=== PATIENT | male | born 1985 | race Caucasian/White ===

== ENCOUNTER 2018-11-06 20:23 | Emergency (ER) | payer OTHER ==
[~2018-11-06] VITALS: Ht 177.8 cm; Wt 83.9 kg
[2018-11-06 20:30] VITALS: BP 168/104
[2018-11-06] MEDS ORDERED: DIPHTH,PERTUSS(ACELL),TET TOX 0.5 ML DISP.SYRIN. VAX IM ONE (21:30)
[2018-11-06] MEDS ORDERED: LIDOCAINE 2% 20 ML VIAL. IJ ONE (21:30)
[2018-11-06] MEDS ORDERED: KETOROLAC 60 MG/2 ML VIAL. IM ONE (22:00)
[2018-11-06] MEDS ORDERED: AMOX1TAB61 PO (23:01)
[2018-11-06] MEDS ORDERED: HYDR-3135 PO (23:01)
--- NOTE | 2018-11-06 23:01 | PHYS DOC ---
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 There is a 1.5 cm laceration to the palm of the hand as well as a bite to the tip of the third digit with a broken fingernail. The patient states that this was his personal dog and it is vaccinated. The patient is not up-to-date on his tetanus status. (MILY MIJARES APRN) Review of Systems Review of Systems Constitutional: Denies fever or chills [] Respiratory: Denies cough or shortness of breath [] Cardiovascular: No additional information not addressed in HPI [] GI: Denies abdominal pain, nausea, vomiting, bloody stools or diarrhea [] : Denies dysuria or hematuria [] Musculoskeletal: Denies back pain or joint pain [] Integument: See history of present illness Neurologic: Denies headache, focal weakness or sensory changes [] Endocrine: Denies polyuria or polydipsia [] All other systems were reviewed and found to be within normal limits, except as documented in this note. (MILY MIJARES APRN) Current Medications Current Medications Current Medications Medications (Trade) Dose Ordered Sig/Josefa Start Time Stop Time Status Last Admin Dose Admin Diphtheria/ Tetanus/Acell Pertussis (Boostrix) 0.5 ml ONCE ONCE 11/06/18 21:30 11/06/18 21:31 DC 11/06/18 21:39 0.5 ML Ketorolac Tromethamine (Toradol Im) 60 mg 1X ONCE 11/06/18 22:00 11/06/18 22:01 DC 11/06/18 22:09 60 MG Lidocaine HCl 20 ml 1X ONCE 11/06/18 21:30 11/06/18 21:31 DC 11/06/18 21:11 20 ML (DIANDRA LONG MD) Allergies Allergies Allergies Coded Allergies Type Severity Reaction Last Updated Verified No Known Medication Allergies Allergy Unknown 11/06/18 Yes diphenhydramine Adverse Reaction Mild anxiety 11/06/18 Yes (DIANDRA LONG MD) Physical Exam Physical Exam Constitutional: Well developed, well nourished, no acute distress, non-toxic appearance. [] Cardiovascular:Heart rate regular rhythm, no murmur [] Lungs & Thorax: Bilateral breath sounds clear to auscultation [] Abdomen: Bowel sounds normal, soft, no tenderness, no masses, no pulsatile masses. [] Skin: 0.5 cm laceration to the palm of the right hand, there are 2 puncture wounds to the tip of the right finger that have broken the fingernail. Back: No tenderness, no CVA tenderness. [] Extremities: No tenderness, no cyanosis, no clubbing, ROM intact, no edema. [] Neurologic: Alert and oriented X 3, normal motor function, normal sensory function, no focal deficits noted. [] Psychologic: Affect normal, judgement normal, mood normal. [] (MILY MIJARES APRN) Current Patient Data Vital Signs Vital Signs Date Time Temp Pulse Resp B/P (MAP) Pulse Ox O2 Delivery O2 Flow Rate FiO2 11/06/18 20:30 98.5 122 16 168/104 (125) 96 Room Air 98.5 (DIANDRA LONG MD) EKG EKG [] (MILY MIJARES APRN) Radiology/Procedures Radiology/Procedures []Laceration Repair by me: Anesthesia: 1% lidocaine locally Location: Right palmar surface Tendon/Joint/Nerves: No injury Foreign body: None detected after copious irrigation and exploration Technique: 4 Simple Interrupted Sutures Complexity: No subcutaneous sutures/mucosal repair/edge excision Post Closure Length: 1.5 cm Patient's bleeding was easily controlled in the department and there is no indication of anemia. No evidence of compartment syndrome, neurologic injury, vascular injury, open joint, tendon laceration, or foreign body. Patient is appropriate for outpatient follow up. 48 hour wound check. Scar minimization instructions given. (MILY MIJARES APRN) Course & Med Decision Making Course & Med Decision Making Pertinent Labs and Imaging studies reviewed. (See chart for details) []The patient received a Boostrix except in the emergency department. His wounds were thoroughly cleaned and he was placed on antibiotic therapy. He is to follow-up for suture removal. He is to return to the emergency department if worsening. He is in agreement with this plan. (MILY MIJARES APRN) Course & Med Decision Making Staff Physician Addendum: I was working in the ER during the course of this patient's visit. I was available for consultation as needed, but I was not directly involved in the care of this patient. (DIANDRA LONG MD) Dragon Disclaimer Dragon Disclaimer This electronic medical record was generated, in whole or in part, using a voice recognition dictation system. (MILY MIJARES APRN) Departure Departure Impression: Primary Impression: Laceration Additional Impressions: Animal bite of finger Animal bite of hand Disposition: HOME, SELF-CARE Condition: STABLE Referrals: PAULY LARA MD (PCP) Patient Instructions: Animal Bite, Laceration Care, Adult Additional Instructions: Take the medications as directed. Do not drive or operate heavy machinery while taking the pain medication. Follow-up in 7-10 days for suture removal. If worsening return to the emergency department. Scripts Amoxicillin/Potassium Clav (AUGMENTIN 875-125 TABLET) 1 Each Tablet 1 TAB PO BID for dog bite, #20 TAB Prov: MILY MIJARES APRN 11/06/18 Hydrocodone/Apap 10-325 (NORCO 10-325 TABLET) 1 Each Tablet 1 TAB PO PRN Q6HRS PRN for PAIN, #20 TAB 0 Refills Prov: MILY MIJARES APRN 11/06/18 Problem Qualifiers MILY MIJARES APRN Nov 06, 2018 23:01 DIANDRA LONG MD Nov 22, 2018 06:11
--- NOTE | 2018-11-07 01:56 | RAD ---
Three-view bilateral hand dated 11/06/2018. No comparison available. CLINICAL INDICATION: Dog bites. Pain. FINDINGS: 3 views of the right hand show normal bony alignment. No displaced fracture. There is some soft tissue swelling and soft tissue gas at the volar aspect of the hand along the second proximal phalanx. Underlying osseous structures intact. No periostitis or bone destruction. No radiopaque foreign body. 3 views of left hand show evidence of prior amputation of the second digit near the base of the middle phalanx. There is also been amputation of the fifth digit at the level of the DIP joint. Alignment is anatomic. No displaced fracture. No periostitis or bone destruction. There is mild soft tissue swelling. IMPRESSION: 1. Bilateral soft tissue swelling with no evidence of underlying acute bony abnormality. 2. 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 Electronically signed by: Timmy Felix MD (11/07/2018 1:53 AM) [facility]
== END 2018-11-06 23:12 | disposition home or self-care (01) ==
LOC: ER 20:23
DX: S61.411A Laceration without foreign body of right hand, initial encounter (principal); S61.252A Open bite of right middle finger without damage to nail, initial encounter; F10.20 Alcohol dependence, uncomplicated; Y90.9 Presence of alcohol in blood, level not specified; Z88.5 Allergy status to narcotic agent; W54.0XXA Bitten by dog, initial encounter; Y93.89 Activity, other specified; Y92.89 Other specified places as the place of occurrence of the external cause; Y99.8 Other external cause status
CPT/HCPCS: 12001; 73130; 90471; 90715; 96372; 99283; J1885; J2001